=== PATIENT | male | born 1980 | race Caucasian/White ===

== ENCOUNTER 2016-05-29 09:06 | Inpatient (IN) | payer OTHER ==
[~2016-05-29] VITALS: Ht 188 cm; Wt 119.4 kg
--- NOTE | ~2016-05-29 | TXPLANREV ---
"PATIENT: BETTY KYLE W | | [facility] UNIT #: [id number] | [address] AGE/SEX: 35 M : 78 | [address] | [place] [address] ADMIT/REG DATE: 05/29/16 | ROOM: [facility] LOC: ADTC | ADTC | Treatment Plan/Staffing Review Date: 06/12/16 Treatment plan was reviewed and determined appropriate as written: Client finished his feelings letters to his mother and sons. Treatment plan was reviewed and the following changes/addition/deletions are necessary: Client began to work on Quiet Moments and read Spirituality. Discharge plans were reviewed and determined appropriate as previously documented: Yes Discharge plans were reviewed and determined to be as follows: Client has been accepted into the [facility] in [place]. Client is recommended to check into the [facility] on June 21. Other pertinent issues discussed during this staffing review include: None Staff Present: Giovanna Russell Deb H PRIMARY COUNSELOR: Felecia Lewis Client Signature Counselor Signature Date Time "
--- NOTE | ~2016-05-29 | TXPLANREV ---
"PATIENT: BETTY KYLE W | | [facility] UNIT #: [id number] | [address] AGE/SEX: 35 M : 78 | [address] | [place] [phone] ADMIT/REG DATE: 05/29/16 | ROOM: [facility] LOC: ADTC | ADTC | Treatment Plan/Staffing Review Date: 06/19/16 Treatment plan was reviewed and determined appropriate as written: Yes Treatment plan was reviewed and the following changes/addition/deletions are necessary: Client was assigned feelings letters to his mother and older sisters along with one to his daughter. Client was also given an anger and letting go of the need to control packet to work on. Discharge plans were reviewed and determined appropriate as previously documented: yes Discharge plans were reviewed and determined to be as follows: It is recommended that client go to the [facility] in [place] with outpatient counseling. Other pertinent issues discussed during this staffing review include: none Staff Present: Joanna Valladares Jolene S PRIMARY COUNSELOR: Felecia Lewis Client Signature Counselor Signature Date Time "
--- NOTE | ~2016-05-29 | INDIVTXPL2 ---
"PATIENT: BETTY KYLE W | | [facility] UNIT #: [id number] | [address] AGE/SEX: 35 M : 78 | [address] | [place] [address] ADMIT/REG DATE: 05/29/16 | ROOM: [facility] LOC: ADTC | ADTC | Individualized Treatment Plan DATE: 06/05/16 Problem Statement/Issue Identified: Client continued to use drugs despite ongoing negative consequences. Goal: Client is to learn about his drug addiction, identifying consequences of his use, and learn how to work a stronger AA/NA program. Objectives/Activities to achieve goal: 1. Client is to read and fill out Getting Started in Treatment packet, identifying consequences of his use and share with his counselor and selected pages in group. Due Date: 06/15/16 Complete: Incomplete: 2. Client is to complete Step 1, identifying 15 values he has compromised due to his use and share with his counselor and selected pages in group. Due Date: 06/15/16 Complete: Incomplete: 3. Client is to attend AA/NA meetings, ask for and get 5 male phone numbers, learning how to reach out and help build a strong program of recovery. Due Date: on-going Complete: Incomplete: Client Signature Date Counselor Signaure: Date Outcome/Measurement of Progress Towards Goal: Counselor Signature: Date "
--- NOTE | ~2016-05-29 | CLPRLASSUM ---
PATIENT: BETTY KYLE W | | [facility] UNIT #: [id number] | [address] AGE/SEX: 35 M : 78 | [address] | [place] [address] ADMIT/REG DATE: 05/29/16 | ROOM: [facility] LOC: ADTC | ADTC | Client Problem List/Assessment Summary Date: 06/05/16 Problems identified by the client: Client began to use drugs after being release from longterm. Problems identified by significant others: drugs Client's Strengths: kind, intelligent, wants recovery Problem List: Code: T Client continued to use alcohol & drugs despite ongoing negative consequences. Code: T Client is experiencing family discord and distancing as a result of past drug use. Code: T Client does not "reach-out to others for help" and instead resumes using drugs. Code Rivera: T: to be addressed during course of treatment O: problem noted, expected to resolve itself with abstinence--specific tx plan not required R: problem noted, will be referred upon discharge PRIMARY COUNSELOR: Felecia Lewis
--- NOTE | ~2016-05-29 | RESCARESUM ---
"PATIENT: BETTY KYLE W | | [facility] UNIT #: [id number] | [address] AGE/SEX: 35 M : 78 | [address] | [place] [address] ADMIT/REG DATE: 05/29/16 | ROOM: [facility] LOC: ADTC | ADTC | Summary of Residential Care Primary Counselor: Felecia [facility] Date of Admission: 05/29/16 Date of Discharge: 06/21/16 Referral Source: self Primary Care Provider Prior to Admission: Dr. 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 Discharge Diagnosis: same as above Goals Achieved: Client verbalized understanding of the severity of his powerlessness and unmanagability related to his substance use. He practiced identifying and appropriately expressing his feelings. Client began to work on identifying relapse triggers and his prevention plan. Continued Obstacles to Sobriety/Relapse Issues: Client needs to continue to work on forgiving himself for his past behaviors. Family Issues Addressed: Y Individual Therapy Y Group Therapy Y Educational Series on Substance Abuse Y Parents/Significant Others Attended Family Program Y Acute Medical Problems During the Course of Treatment N Transferred to Hospital During the Course of Treatment Y Accepting of Substance Abuse Problem N Non-accepting of Substance Abuse Problem N Required Psychological or Psychiatric Consultation During the Course of Treatment Completed AA Step # 1 During This Level of Care Significant Incidences During Treatment: None Reason For Discharge: Y Completed Residential TX Goals and Ready For Next Level of Care N Left Tx Against Medical Advice/Treatment Goals Not Complete N Completed Residential Tx Goals But Refusing Continuing Care Recommendations N Discharged Due to Noncompliance/Treatment Goals not Completed N Discharged Earlier Than Planned Due to: PATIENT: BETTY KYLE | | [facility] UNIT #: [id number] | [address] AGE/SEX: 35 M : 78 | [address] | [place] [address] ADMIT/REG DATE: 05/29/16 | ROOM: [facility] LOC: ADTC | ADTC | Summary of Residential Care Continuing Care Plan/Recommendations: N Intensive Partial Care Y Sponsor N Partial Care Y AA Meetings/NA Meetings Y Outpatient N Co-dependency Services N Therapeutic Community N 1/2 [facility] Y 3/4 [facility] N Mental Health Therapy N Marriage Counseling N Other Specific Continuing Care Plan: It is recommended that client go directly to the [facility] in [place], fllow all rules and regulations, seek full-time employment, call his sponsor on a regular basis, attend 3-4 AA/NA meetings a week, and work a strong program of recovery. PRIMARY COUNSELOR: Felecia Lewis"
--- NOTE | 2016-05-29 16:30 | NUR ---
ADMISSION NOTE Client is a 35 y/o male, referred to treatment by [facility] and brought here today from their Crisis Stabilization Unit by CSU staff. Client States NKMA and brings home medications with him today. Client states DOC is marijuana, last used in april, while in nursing home, and meth, last used May 10 in the amount of 1.75 gram. Client resides in [place] at [facility] and states that he has no family who will be participating in family group. Client was searched no contraband found. Client has only the clothes that he is wearing and a quart ziplock bag of grooming items. Client was searched, no contraband found. Rights/Responsibilities: Copy given and explained to client. Signed and accepted by client. Client oriented to physical lay out of the ADTC unit, given Big Book and admission packet. A Jad was assigned. Boy
--- NOTE | 2016-05-29 17:11 | NUR ---
Relapse Prevention, 03/02, 1.0 hours, Client attended and actively participated in relapse prevention education which focused on high risk situations.
--- NOTE | 2016-05-29 19:32 | NUR ---
education note: 1 hour lecture by [facility] on hiv/aid/std. plus clients wwere tested for HIV.
--- NOTE | 2016-05-29 22:08 | NUR ---
Tech note: Client went for a long walk for rec, participated in guided meditation and attended an onsite AA meeting.
--- NOTE | 2016-05-30 05:30 | NUR ---
Bed note : Client was in bed with eyes closed and no movement at all bed checks.
--- NOTE | 2016-05-30 11:30 | NUR ---
GROUP 1.5 HRS. 1:10 Client was oriented to purpose and rules of group. He reports first treatment attempt at [facility] at age 12. He also went to [facility] as adult. Peers processed from HOW TO GET STARTED IN TREATMENT and step 1 assignments to identify betraying values and effects on others.
--- NOTE | 2016-05-30 13:26 | NUR ---
Tech Note: Outside speaker Abhinav Erickson spoke at 1300. Client attended and is finishing up Getting Started.
--- NOTE | 2016-05-30 17:17 | NUR ---
Individual Therapy, 1.0 hours, This session focused on orienting the client to how therapy works, visiting hours, release forms, how bed checks work,room log, and family education. Client was given Step 1 to work on as homework.
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
--- NOTE | 2016-05-30 17:20 | NUR ---
Family Note: Client wants his mother to be part of family. A message was left for her to call back along with visiting hours for this weekend.
--- NOTE | 2016-05-30 17:27 | NUR ---
SPIRITUAL EDUCATION 1 HR. Topics today were clarifying the differences between spirituality and jain, and playing the spiritual challenge game where they are asked thought provoking open ended questions. It is meant to inspire spiritual line of thought.
--- NOTE | 2016-05-30 22:41 | NUR ---
Tech Note : Client participated in rec by playing catch phrase and attended an onsite NA meeting.
--- NOTE | 2016-05-30 23:39 | NUR ---
Education: 1 Hour. Client attended "Disease Concept" presented by counselor.
--- NOTE | 2016-05-31 05:36 | NUR ---
Bed Note: Client was motionless with eyes closed at all bed checks.
--- NOTE | 2016-05-31 10:42 | NUR ---
Tech Note: Client participated in light stretching for morning exercise. Client stated that he is working on Step One.
--- NOTE | 2016-05-31 13:48 | NUR ---
PEER REVIEWS 1 HR: Clt participated in peer reviews and took a risk to give open and honest feedback to those receiving a review. The last half hour of group clients talked about loved ones and dying.
--- NOTE | 2016-05-31 15:47 | NUR ---
Education 1 Hour: Client heard from a member of the recovery community who shared his experience, strength and hope.
--- NOTE | 2016-05-31 16:02 | NUR ---
Step Education 1 hr/ Focus was on step 12 "having had a spiritual awakening", each person completed a set of questions on paper and then we discussed. This client participated.
--- NOTE | 2016-05-31 19:42 | NUR ---
Tech note: client was off the unit for [employer] banquet and speaker event
--- NOTE | 2016-06-01 11:51 | NUR ---
Group 1.5 Hr Ratio 1:10/Topics today were orientating a new member to group rules and goals, a GS packet and a getting started packet. Client shared his GS packet and talked about how bad his bipolar is.
--- NOTE | 2016-06-01 13:46 | NUR ---
Tech Note: Client with with group on an outdoor walk. Client is working on the [employer] Book.
--- NOTE | 2016-06-01 16:00 | NUR ---
Education Note: Client watched "How to Sabotage Your Treatment"
--- NOTE | 2016-06-01 16:19 | NUR ---
Individual Therapy: 1.0 hours, This session focused on review of clients Getting Started packet and Step 1 packet. Client was assigned a self-worth packet to complete and feelings letters were assigned.
--- NOTE | 2016-06-01 16:35 | NUR ---
PEER REVIEWS 1.0 HR: Clt participated in peer reviews and took a risk to give open and honest feedback to those receiving a review.
--- NOTE | 2016-06-01 22:56 | NUR ---
TECH NOTE: Client participated in reading [employer], watched tv/movies. SE: getting clothes
--- NOTE | 2016-06-02 04:04 | NUR ---
Bed Note: Clt lay motionless in bed with eyes closed showing no distress at all bed checks.
--- NOTE | 2016-06-02 15:13 | NUR ---
Tech Note: Client is working on Feelings Letters.
--- NOTE | 2016-06-02 22:55 | NUR ---
TECH NOTE: Client played a game for REC, attended off site AA meeting, watched TV/movies SE: AA
--- NOTE | 2016-06-03 04:47 | NUR ---
Bed Note: Clt lay motionless in bed with eyes closed showing no distress at all bed checks.
--- NOTE | 2016-06-03 15:20 | NUR ---
Tech Note: Client participated in Big Book and stated that he is working on writing a vent letter.
--- NOTE | 2016-06-03 22:53 | NUR ---
Tech Note: Client attended A.A.Panel and participated in community clean. SE:Watching Basketball
--- NOTE | 2016-06-04 04:50 | NUR ---
Client was motionless with eyes closed at all bed checks.
--- NOTE | 2016-06-04 09:10 | NUR ---
Individual Therapy, 1.0 hours, This session focused on reviewing clients Self-[place] packet along with him reading his feelings letter to his mother and vent letter to his father. Client also discussed wanting to go to a half way house so we filled out release forms to apply.
--- NOTE | 2016-06-04 10:20 | NUR ---
Kell notes: Client is working on BB and mtg with guy
--- NOTE | 2016-06-04 15:42 | NUR ---
Morning Group, 1.5 hours, 03/03 Clients all participated in 2 family sculptures with role-playing, feedback, and how they related.
--- NOTE | 2016-06-04 16:02 | NUR ---
RECOVERY EDUCATION 1 HR. Todays topic was on denial; good, bad, and levels, life problems being 85 percent of recovery, and distorted thinking patterns that can keep us stuck.
--- NOTE | 2016-06-04 16:30 | NUR ---
Education note: Client watched video "[address] on [address]"
--- NOTE | 2016-06-04 18:35 | NUR ---
tech note: client c/o level 6 headache @ 8052,motrin 400 mg was given.
--- NOTE | 2016-06-04 18:42 | NUR ---
Education: 1 Hour. Client attended "Feelings" lecture given by staff.
--- NOTE | 2016-06-04 22:07 | NUR ---
Tech note: Client participated in rec by playing [email or web address] outside. Client attended an onsite NA meeting.
--- NOTE | 2016-06-05 04:14 | NUR ---
BED NOTE: client was in bed, motionless with eyes closed all three bed checks.
--- NOTE | 2016-06-05 11:30 | NUR ---
GROUP 1.5 HRS. 1:9 Clients oriented new peer to purpose and rules of group. This client shared that this is his 10th treatment attempt with various lengths of sobriety from 90 days-2 years. He is encouraged to look at what has worked to keep him sober when he was and what he needs to do differently to avoid relapse.
--- NOTE | 2016-06-05 16:15 | NUR ---
Relapse Prevention, 02/28 ratio, 1.0 hours, Client attended and actively participated in relapse prevention education which focused on personal reactions to high risk situtations such as personal reactions vs. personal responses, addictive thinking, irresponsible thinking, addictive behavior, irresponsible behavior, instant gratification, and emotional consequences to thoughts and actions.
--- NOTE | 2016-06-05 16:32 | NUR ---
Tech Note: Client listened to speaker Nilay share his experience, strength and hope. Client is working on the Big Book.
--- NOTE | 2016-06-05 19:31 | NUR ---
Education : 1 hour lecture given by counselor on feelings.
--- NOTE | 2016-06-05 22:13 | NUR ---
Tech note: Client played catchphrase for rec, participated in guided meditation and attended AA meeting. SE:speaker
--- NOTE | 2016-06-06 04:22 | NUR ---
Bed note: client was in bed with eyes closed and no distress at all bed checks.
--- NOTE | 2016-06-06 10:02 | NUR ---
Tech notes: Client is working on BB
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
--- NOTE | 2016-06-06 13:29 | NUR ---
Education note: Client watched video
--- NOTE | 2016-06-06 16:22 | NUR ---
SPIRITUAL EDUCATION 1 HR. Todays topic was the ADDICTIVE SELF vs. SPIRITUAL SELF. We held discussion on who we are in our addiction vs who we are in recovery and contrasted the two.
--- NOTE | 2016-06-06 18:32 | NUR ---
Education: 1 hour lecture on self esteem given by counselor
--- NOTE | 2016-06-06 22:47 | NUR ---
Client did beads for rec and attended N.A.Meeting. SE: Outside N.A.Member speaking at meeting
--- NOTE | 2016-06-07 03:59 | NUR ---
Bed note: client was in bed with eyes closed and no distress at all bed checks.
--- NOTE | 2016-06-07 10:19 | HP ---
ADMIT: 05/29/2016 RM/LOC: [facility] MR#: [id number] [place], [place] [id number] BETTY KYLE [address] [place] [address] History and Physical SEX: M AGE: 35 : 1980 DATE OF SERVICE: This is for his admission to the residential care program at [facility]. CHIEF COMPLAINT: Drug problem with recent relapse. CLINICAL HISTORY: The patient is a 35-year-old white male, admitted to the residential care program at this time for treatment of his cannabis use disorder and stimulant use disorder. The patient notes that he recently was released from group home. He was in group home for little over 2 years going into group home in March of 2014 and being released on 05/08/2016. He was in group home for burglary charges. This was his second extended stay in group home having spent two years in group home from 2007 until 2009 also for burglary charges. Has an extensive legal history. His legal problems are all related to his ongoing chemical dependency and substance abuse. He readily admits that he is an addict, noting that his drug of choice is marijuana with his second drug of choice being methamphetamine. He notes he got out of group home on 05/08/2016 and upon his release from group home, his intent was to stay clean and sober and stay away from drugs completely. Unfortunately, the day after he got out of group home, he hooked up with an old friend, who had both meth and pot and he went on a two-day binge using both pot and meth heavily for 2 days using on 05/09 and 05/10. On 05/11 because of his heavy meth use, he was having hallucinations and was having wide mood swings and was having suicidal ideation. He went to the ER at [facility] and was admitted to the Behavioral Service Unit. He has been at the [facility] Behavioral Service Unit from 05/11/2016 through 05/22/2016. After spending 11 days at [facility], he then went to [facility] where he has been for the past week from 05/22/2016 through 05/29/2016. The patient expresses a desire to remain clean and sober, but notes that he did not have the will power to resist the temptation when offered by his friend on 05/09/2016. The patient as noted admits that he is an addict. He notes this is his fourth time in treatment. The patient notes that he had treatment in 1992 at [facility]. He went back to treatment in 2004 at the [facility] in [place]. In 2011, he was at [facility]. He then was there for treatment. He then went to the [facility] for one year and had a period of one and half years of sobriety before once again relapsing. I have already stated his drug of choice is pot. He first started using marijuana at age 12. He has been using off and on since that time. When he has the money and access, he smokes pot daily up to as much as 0.25 ounce of pot per day. His second drug of choice is methamphetamine. He has been using amphetamine since age 15. Primarily smokes some or uses them IV. He notes that he will use them off and on. Typically using a half of an 8 ball per day. IVs preferred route of administration. He notes he has mixed opioids with the meth in the past, mixing morphine and meth together and shooting that IV. He has also abused Ritalin, Ativan, oxycodone, and hydrocodone in the past. He notes this has been on a very limited irregular basis. His primary drugs of choice have been pot and meth. He has used cocaine in the past as well, but has not used any cocaine in the last 5 years. He has also experimented with hallucinogens in the form of LSD and mushrooms in the past when he was in his late teen. He ADMIT: 05/29/2016 RM/LOC: [id number] [facility] MR#: [id number] [id number] [facility] [address] [place] [id number] BETTY [address]YLE [address] [place] [address] History and Physical SEX: M AGE: 35 : 1980 notes he is not much of a drinker at this time. He notes when he was younger during his late teens and early 20s, he was a heavy user of alcohol, drinking daily to intoxication, but in the last 10 to 12 years, he has drank on a very limited basis. He does not believe he has had any alcohol in the last 3 to 4 years. He comes to treatment at this time because he is in violation of his probation since he started using right away. He comes to treatment hoping to avoid going back to group home. PAST MEDICAL HISTORY: Recent hospitalizations: As noted, he was just recently at [facility] for psychiatric stabilization from 05/11/2016 through 05/22/2016. The patient notes in 2010, he had a deep-seated MRSA infection in his right thigh that required extensive drainage. He was hospitalized for 5 to 6 days with a severe MRSA infection in 2010. He has had no other recent hospitalizations. Previous operations: I and D and debridement of his left leg abscess in 2010. No other surgical procedures. His current medications he was started on when admitted to [facility], prior to his admission to [facility] he was on no medications, getting out of group home. CURRENT MEDICATIONS: Include: 1. Prilosec 20 mg one daily. 2. Nubieber 300 mg two tablets twice a day. 3. Bupropion 150 mg one tablet t.i.d. 4. Seroquel 400 mg one at bedtime. 5. Seroquel 50 mg every 6 hours p.r.n. anxiety. ALLERGIES: NO KNOWN ALLERGIES. MEDICAL ILLNESSES: The patient denies any chronic health problems that he is aware of other than for his chemical dependency as well as chronic psychiatric problems. He admits to a longstanding difficulty with depression, panic attacks, and anxiety. He is noted to be a smoker. Typically, he smokes a half pack a day. REVIEW OF SYSTEMS: Remainder of a 12-point review of systems is negative. SOCIAL HISTORY: The patient has been once. His marriage lasted about a year and a half, but they had been together for several years prior to that. He remains at this time. He has two children from his prior marriage, their ages are 10 and 14. He is currently homeless. The patient notes that he dropped out of high school. He got his GED as a teenager while he was at the [facility]. He notes he dropped out of high school in the 9th grade. He is currently unemployed. FAMILY HISTORY: He notes his parents when he was age 8. Primarily ADMIT: 05/29/2016 RM/LOC: [facility] MR#: [id number] [address] [id number] [facility] [address] [place] [address] History and Physical SEX: M AGE: 35 : 1980 raised by his mother. He notes that both of his parents were alcoholics and addicts. His father continues to drink and use meth. Mother was an alcoholic. She has now been clean for 24 years. He notes he has an older sister, who is also an alcoholic. Notes a strong history of chemical dependency issues on both sides of his family. PHYSICAL EXAMINATION: VITAL SIGNS: Temp is 95.8, pulse is 76, respirations 12, and blood pressure 139/86. Height is 6 feet 2 inches and weight is 261 pounds. GENERAL: The patient is a 35-year-old male, who appears his stated age. He is in no acute distress. He is oriented x3. HEENT: Today is unremarkable. NECK: Supple. Thyroid not enlarged. No cervical adenopathy. LUNGS: Noted to be clear. HEART: Regular rhythm without murmur. ABDOMEN: Today is unremarkable. Nontender. No masses or organomegaly. GENITALIA: Normal male. No hernias. EXTREMITIES: Normal to gross exam. He does have extensive scarring of the medial aspect of his right thigh from previous I and D procedure. He has no peripheral edema. No clubbing or cyanosis. NEUROLOGIC: He is intact with no focal deficit. MENTAL STATUS EXAMINATION: He is pleasant and cooperative. Affect is appropriate. His mood is calm. He has no bizarre ideation. No delusions. No psychotic thought processes at this time. He does admit to depressed mood and prior suicidal thoughts, but none at this time. He is oriented x3. His memory is intact. He appears to be of average intelligence. Insight is limited. Judgment is limited. ASSESSMENT AT THE TIME OF ADMISSION: 1. Stimulant use disorder, stimulant/methamphetamine use disorder, severe. 2. Cannabis use disorder, severe. 3. Alcohol use disorder, severe in full sustained remission. 4. Opioid use disorder, mild. 5. Substance-induced psychotic disorder. 6. Bipolar disorder. ADMIT: 05/29/2016 RM/LOC: [id number] MR#: [id number] [facility] [address] [id number] [place] [address] History and Physical SEX: M AGE: 35 : 1980 7. Generalized anxiety disorder. 8. Posttraumatic stress disorder. 9. Tobacco use disorder. 10.Chronic gastroesophageal reflux disease/reflux esophagitis. PLAN: Plan is to admit the patient to the residential care program with a tentative discharge date of 06/26/2016. Upon completion of treatment, strongly we would recommend that the patient go to a prison house. He will need continued psychiatric care post treatment for management of his psychotropic medications. The patient appears to be relatively stable on his current medications. We will continue with the medications as he was discharged on them from [facility]. Peter Vee MD/ prachi JOB #: [id number] CC: Peter Vee, Attending Physician FAMILY PHYSICIAN, Family Physician
--- NOTE | 2016-06-07 11:54 | NUR ---
Group 1.5 Hr Ratio 1:10/Topics today were a Getting Started packet, a Relapse prevention and a Self worth packet. Client shared his Self [place] packet and what he can do to help him feel good about his self.
--- NOTE | 2016-06-07 15:25 | NUR ---
Tech Note: Client participated in Spiritual Enrichment in the morning and went for an outdoor walk after lunch. Client stated that he is working on reading the Big Book.
--- NOTE | 2016-06-07 16:15 | NUR ---
Education 1 Hour: Client heard a presentation on cross addiction.
--- NOTE | 2016-06-07 17:00 | NUR ---
FAMILY EDUCATION 3 HRS. Client was accompanied by his mom. They took part in the discussion on the disease concept. Client shared chemical history and the consequences.
--- NOTE | 2016-06-07 23:02 | NUR ---
TECH NOTE: Client did newcommer bookmarks for REC, participated in guided meditation, and attended AA meeting. SE: family
--- NOTE | 2016-06-08 01:21 | NUR ---
1 HR EDUCATION: Client watched a video "Say Yes to Life" by Father Maximilian Johnston
--- NOTE | 2016-06-08 04:40 | NUR ---
Bed Note: CLt lay motionless in bed with eyes closed showing no distress at first and last bed checks. The second bed check clt looked at tech.
--- NOTE | 2016-06-08 09:53 | NUR ---
Individual therapy, 1.0 hours, This session focused on reviewing clients feelings letter to his mother. Client talked about how happy he was that his mother attended family education and is coming back on June 18. Client talked about some frustrations he had with other clients and how he had handled himself better than he used to. Client was assigned a relapse prevention packet and a spiritual book to read.
--- NOTE | 2016-06-08 13:39 | NUR ---
Morning Group, 02/21, 1.5 hours, Client attended and actively participated in group session. Client was quiet during group and mostly listened.
--- NOTE | 2016-06-08 14:48 | NUR ---
PEER REVIEWS 1.5 HRS: Clt participated in peer review process and took a risk to give open and honest feedback.
--- NOTE | 2016-06-08 16:19 | NUR ---
Tech Note: Clt watched "Relapse" for afternoon video. Clt is working on reading the Big Book.
--- NOTE | 2016-06-08 22:40 | NUR ---
Tech note: Client watched tv and movies.
--- NOTE | 2016-06-09 05:19 | NUR ---
Bed note : Client was in bed motionless with eyes close at all bed checks.
--- NOTE | 2016-06-09 05:20 | NUR ---
Bed note : Client was in bed motionless with eyes close at all bed checks.
--- NOTE | 2016-06-09 15:35 | NUR ---
Tech Note: Client attended A.A.Meeting at [facility] and [place] and then helped with the clubhouse cleaning, ate lunch, and listened to a speaker. Client is working on Relapse Prevention
--- NOTE | 2016-06-09 20:42 | NUR ---
tech note: Client played a game for recreation & attended offsite AA meeting. Client watched tv. SE: Free time.
--- NOTE | 2016-06-10 05:20 | NUR ---
Bed note: Client was in bed motionless with eyes closed at all bed checks.
--- NOTE | 2016-06-10 16:19 | NUR ---
TECH NOTE: Client participated in Chapter 5 of Big Book study, attended study time, and watched tv/movies
--- NOTE | 2016-06-10 22:57 | NUR ---
tech note: client attended AA Panel & participated in Community Clean. Client watched tv. Client filled out Self-Care Sheet. SE: All Day.
--- NOTE | 2016-06-11 04:37 | NUR ---
Bed Note: Clt lay motionless in bed with eyes closed showing no distress at all bed checks.
--- NOTE | 2016-06-11 11:13 | NUR ---
Tech notes: Client is working on LocBox
--- NOTE | 2016-06-11 12:59 | NUR ---
Morning Group, 02/19 ratio, 1.5 hours, Client attended and actively participated in group discussion. Client listened to his peers talk about family and offered feedback to another peer about a feelings letter written.
--- NOTE | 2016-06-11 15:39 | NUR ---
Education note: Client attended speaker for education, Samara on Tobacco
--- NOTE | 2016-06-11 16:00 | NUR ---
Recovery 101 1 hr/ Clients all participated in reading, highlighting and discussing the Big Book on areas about honest, acceptance, living in problem vs living in solution, resentments, 1/2 measures, and the 12 promises.
--- NOTE | 2016-06-11 18:13 | NUR ---
Education: 1 hour lecture given by counselor on "forgiveness"
--- NOTE | 2016-06-11 22:24 | NUR ---
Tech note : Client went on a walk for rec and attended an onsite NA meeting. SE; Having a cindy
--- NOTE | 2016-06-12 04:15 | NUR ---
Bed note: Client was in bed with eyes closed and no distress at all bed checks.
--- NOTE | 2016-06-12 10:28 | NUR ---
Contact Note: Talked to Delio at the [facility] and Alfredo was accepted to the [facility] and should check in on SaturdayJune 22.
--- NOTE | 2016-06-12 12:53 | NUR ---
A.M. 1.5 hr res group/ratio 1:10/ Group heard a getting started and a goodbye letter to addiction. Discussed having resentment towards self, how kids are forgiving, and we oriented 3 new group members. This client did a great job with his goodbye letter to his addiction. He got teary eyed when speaking about his kids.
--- NOTE | 2016-06-12 13:12 | NUR ---
Tech Note: Client participated in light stretching for morning exercise and went for an outdoor walk in the afternoon. Client stated that he is working on, "Relapse Prevention."
--- NOTE | 2016-06-12 16:10 | NUR ---
Relapse Prevention Education, 1.0 hours, Client attended and actively participated in relapse prevention education which focused on a Relapse Prevention Quiz and discussion over the answers.
--- NOTE | 2016-06-12 16:13 | NUR ---
Individual Therapy, 1.0 hours, This session focused on review of clients relapse prevention packet. Client wrote a letter to his addiction and feelings letter to his mother. Client read both and discussed his feelings. Client also discussed his excitement over being accepted to the [facility] in [place].
--- NOTE | 2016-06-12 20:27 | NUR ---
educatio note: 1 hour lecture by counselor on" what garcia are you willing to pay"
--- NOTE | 2016-06-12 22:35 | NUR ---
Tech note: Client attended the Alumni meeting, participated in guided meditation and attended an onsite AA meeting. SE; Group
--- NOTE | 2016-06-13 04:56 | NUR ---
Bed note: Client was in bed with eyes closed and motionless at all bed checks.
--- NOTE | 2016-06-13 10:36 | NUR ---
Tech notes: Client is working on Spirtuality
--- NOTE | 2016-06-13 11:30 | NUR ---
GROUP 1.5 HRS. 1:11 Discussion included the need for appropriate boundaries on the unit and working towards recovery/new behaviors, not addiction/old behaviors. Clients also discussed the effects on addiction as peers had parents that were addicts and then became the parent who addiction effected their own kids. This client identified negative changes in group over the last week.
--- NOTE | 2016-06-13 12:35 | NUR ---
Education note: Client had education by [facility]
--- NOTE | 2016-06-13 17:21 | NUR ---
SPIRITUAL EDUCATION 1 HR. Todays topics were orienting newcomers, and taking a look at Erich Mejias's 5 SECRETS TO SUCCESS which include a look at the miracles of the human body as blessings.
--- NOTE | 2016-06-13 19:42 | NUR ---
tech note: client complained of headache-pain level 6. motrin given
--- NOTE | 2016-06-13 20:56 | NUR ---
education: 1 hour video on unresolved anger and group discussion with counselor
--- NOTE | 2016-06-13 22:07 | NUR ---
Tech note: Client worked on beaded project and attended an onsite NA meeting. SE; NA meeting
--- NOTE | 2016-06-14 04:02 | NUR ---
Bed note: Client was in bed with eyes closed and no distress at all bed checks.
--- NOTE | 2016-06-14 10:21 | NUR ---
Tech Note: Client participated in Spiritual Enrichment. Client stated that he is working on "Quiet Moments."
--- NOTE | 2016-06-14 11:30 | NUR ---
AM GRP 1.5 HRS, Ratio 1:11/ Clt participated in grp discussion and could relate to how his addiction hurt his kids and how important it is to stay clean and work recovery.
--- NOTE | 2016-06-14 13:38 | NUR ---
Education 1 Hour: Client heard a presentation from a member of the recovery community who shared his experience, strength and hope.
--- NOTE | 2016-06-14 15:44 | NUR ---
Individual Baldemar, 1.0 hours, This session focused on client reading his feelings letter to his mother and to his sons. Client's reviewed his homework from his Spirituality and Quite Moments packet. He was asked to share select pages from them in group.
--- NOTE | 2016-06-14 16:31 | NUR ---
step education 1 hr/ Focus was on step 2, handed out some questions they completed on paper and then opened it up for discussion. This client participated.
--- NOTE | 2016-06-14 23:33 | NUR ---
Tech Note: Client attended Guided Meditation and A.A.Meeting. SE: Group
--- NOTE | 2016-06-15 04:24 | NUR ---
Eduction: 1 Hour. Client attended "Unresolved Anger" video & discussion presented by staff.
--- NOTE | 2016-06-15 11:30 | NUR ---
GROUP 1.5 HR/ 11:1 Clients all reviewed rules and heard new member share about himself. This client was attentive and he related to relapse, was clean 2 1/2 years, had sponsor, sponsorees, , kids, great job, home, cars and was area rep for meetings, but got on pity-pot and wasn't getting to meetings due to childcare and relapsed. He said he lost it all in 1 week, and doesn't believe in bottoms unless it is .
--- NOTE | 2016-06-15 13:00 | NUR ---
PEER REVIEWS 1.5 HRS: Clt participated in peer review process and was able to give open and honest feedback to those receiving a review.
--- NOTE | 2016-06-15 16:21 | NUR ---
Tech Note: Client participated in group walk for exercise and watched "Recovery Issues Part 3" for afternoon video. Client is working on Quiet Moments.
--- NOTE | 2016-06-15 22:45 | NUR ---
TECH NOTE: Client participated in reading guidelines and watched tv/movies. SE: peer review
--- NOTE | 2016-06-16 04:09 | NUR ---
Bed Note: Clt lay motionless in bed with eyes closed showing no distress at all bed checks.
--- NOTE | 2016-06-16 16:01 | NUR ---
Tech Note: Client attended NA Panel and is working on Quiet Moments.
--- NOTE | 2016-06-16 20:12 | NUR ---
Tech note: Clt played a game for recreation and attended offsite AA mtg. Argued with tech about game selection for rec, watched tv and played cards. SE was nap and phone call
--- NOTE | 2016-06-17 04:35 | NUR ---
Bed Note: Clt lay motionless in bed with eyes closed showing no distress at all bed checks.
--- NOTE | 2016-06-17 15:44 | NUR ---
Tech Note: Client participated in Big Book Study. Client stated that he is working on, "Quiet Moments."
--- NOTE | 2016-06-17 22:38 | NUR ---
Tech Note: Clt attended AA panel, used phone and watched tv. SE was AA panel
--- NOTE | 2016-06-18 04:37 | NUR ---
Bed Note: Clt lay motionless in bed with eyes closed showing no distress at all bed checks.
--- NOTE | 2016-06-18 10:14 | NUR ---
Kell notes: Client is working on BB and mtg with guy
--- NOTE | 2016-06-18 11:30 | NUR ---
Morning Group, 02/20 ration, 1.5 hours, Client attended and actively participated in group discussion. Client shared about his fear of leaving treatment and also the relationship he has with his mother.
--- NOTE | 2016-06-18 13:00 | NUR ---
Family Session, 1.0 hours, This session focused on client meeting with his mother to set up expectations and boundaries for when he moves to [place]. Client's mother set clear boundaries for client and client asked mother to be a mom and not act like a sponsor to him. Client talked to mom about some past resentments he held towards mom and how he has let them go.
--- NOTE | 2016-06-18 13:30 | NUR ---
Education: Client attended education by Talya on Infection prevention.
--- NOTE | 2016-06-18 17:00 | NUR ---
FAMILY EDUCATION 3 HRS., GROUP 4 HRS. 1:5 Client was accompanied by his mom. They took part in the discussion on the family roles, codependency and detachment. Client related to mascot and scapegoat roles.
--- NOTE | 2016-06-18 17:00 | NUR ---
FAMILY EDUCATION 3 HRS. Client was accompanied by his mom. They took part in the discussion on the family roles, codependency and detachment. Client related to mascot and scapegoat roles.
--- NOTE | 2016-06-18 18:11 | NUR ---
Education: 1 Hour. Client attended "Adult Children of Alcoholics" lecture presented by staff.
--- NOTE | 2016-06-18 21:00 | NUR ---
FAMILY GROUP 4:/ HR: Client, peers and attending family members heard two families process FEELINGS LETTERS. Much of the focus became family of origin issues and rebuilding trust. Everyone related, everyone shared and processed. This client attended with his mom who identified herself as being in senior living recovery. Both remained active through out with personal sharing and support for others who shared. Client processed his FEELINGS LETTER with mom, but mom said she had no idea that she was to write a letter to him. They did well but client seems to think he can't live any other way and was pretty down on himself. He received a lot of support from the group/peers.
--- NOTE | 2016-06-18 23:18 | NUR ---
tech note: Client attended Family Session. SE: Family.
--- NOTE | 2016-06-19 04:31 | NUR ---
BED NOTE: Client was in bed, motionless with eyes closed all three bed checks.
--- NOTE | 2016-06-19 11:30 | NUR ---
GROUP 1.5 HRS. 1:9 Client participated in orienting new peer to purpose and rules of group. Group discussion included anger and frustration at peer's disrespect and immaturity. The peer was in the other group so clients were redirected at what they can do to be a part of the solution, not part of the problem. This client advised he was very angry about peer's behavior and wanted to leave when he observed it. He also owned that the behavior reminds him of himself when he was in Jr. High.
--- NOTE | 2016-06-19 14:00 | NUR ---
Relapse Prevention, 1.0 hours, Client attended and actively participated in relapse prevention education which focused on internal and external triggers.
--- NOTE | 2016-06-19 16:34 | NUR ---
Tech Note: Client participated in Nutritional Services presentation and is working on the Big Book.
--- NOTE | 2016-06-19 22:41 | NUR ---
Education: 1 hour lecture given by counselor on co-dependency
--- NOTE | 2016-06-19 22:48 | NUR ---
Tech note: clients played catchphrase for rec, participated in guided meditation and attended AA meeting SE: all day
--- NOTE | 2016-06-20 04:35 | NUR ---
bed note: client was in bed with eyes closed and motionless at all bed checks.
--- NOTE | 2016-06-20 09:51 | NUR ---
Tech notes: Client is working on BB
--- NOTE | 2016-06-20 12:56 | NUR ---
AM GROUP 9:02/11 1.5 HR: Client and peers participated in ORIENTATION OF TWO NEW PEERS TO GROUP GUIDELINES, PURPOSE, GOALS AND OBJECTIVES. Group heard several process assignments/issues. Much of the focus was on how deeply kids are affected by a parent"s chemical use, even if the kids don't directly see it. This client shared that he knows that he has to develop more effective coping and decision-making skills to be successful in his recovery. He was otherwise quiet but attentive.
--- NOTE | 2016-06-20 13:14 | NUR ---
Education note: Client attended educational speaker Carlito Sheehan
--- NOTE | 2016-06-20 17:23 | NUR ---
SPIRITUAL EDUCATION 1 HR. Today we used music to invoke discussion, symbolize how it can be either positive spirituality or negative spirituality, and discussed the feelings. We used one song that depicted addiction, one that talked about recovery, and since we are close to Mother's Day, one that depicted addiction in parents and forgiveness.
--- NOTE | 2016-06-20 18:16 | NUR ---
Education: 1 Hour. Client attended "Boudaries" lecture given by staff.
--- NOTE | 2016-06-20 22:51 | NUR ---
Tech Note: Client played a game for rec, and attended The on unit N.A.Meeting. SE: Speaker/NA
--- NOTE | 2016-06-21 04:29 | NUR ---
Bed Note: Client was in bed with eyes closed and motionless at all bed checks.
--- NOTE | 2016-06-21 09:57 | NUR ---
DISCHARGE NOTE Client completed treatment and left the faciity, taking all personal belongings with him, including home medications that had been stored at the pharmacy. Discharge instructions were reviewed and a signed copy provided to the client.
--- NOTE | 2016-07-29 13:51 | DS ---
ADMIT: 05/29/2016 RM/LOC: [facility] MR#: [id number] [address] [id number] [place], [place] [id number] BETTY KYLE [address] [place] [address] General Discharge Summary SEX: M AGE: 35 : 1980 ADMISSION DATE: 05/29/2016 DISCHARGE DATE: 06/21/2016 This is for his admission to the residential care program at the [facility]. ADMITTING DIAGNOSIS: As per history and physical. FINAL DIAGNOSES: As follows; 1. Stimulant/methamphetamine use disorder, severe. 2. Cannabis use disorder, severe. 3. Alcohol use disorder, severe, in full sustained remission. 4. Opioid use disorder, mild. 5. Substance-induced psychotic disorder. 6. Bipolar disorder. 7. Generalized anxiety disorder. 8. Posttraumatic stress disorder by history. 9. Tobacco use disorder. 10.Chronic gastroesophageal reflux disease/esophageal reflux with reflux esophagitis. COMPLICATIONS: None. OPERATIONS: None. CLINICAL HISTORY: The patient is a 35-year-old white male, admitted to the residential care program at the [facility] for treatment of his cannabis use disorder and stimulant use disorder as well as opioid use disorder. The patient was recently released from senior living. The patient was in senior living until 05/08/2016, [facility]. The patient is noted to have gotten out of senior living on 05/08/2016. The patient relapsed on 05/09/2016 because of his heavy meth use. He was having hallucination and wide mood swings and suicidal ideation, and for that reason, he went to [facility] and was admitted to the [facility]. The patient then went from the [facility] until his admission here at the residential care program. For details of his pattern of usage and problems associated with his ongoing substance abuse and chemical dependency, please see the clinical history portion of the dictated history and physical. Please also see dictated history and physical for physical exam findings. Laboratory and x-ray summary from this admission, none indicated, none performed. HOSPITAL COURSE: The patient was admitted to the residential care program and assigned to his primary counselor, Felecia Lewis. He remained in the treatment program from 05/29/2016 through 06/21/2016. While in treatment, he participated in individual therapy and group therapy. He was also given the educational series on substance abuse and worked on many of these assignments during his stay at the treatment program. He did attend family education and ADMIT: 05/29/2016 RM/LOC: [facility] MR#: [id number] [facility] [address] [address] [place] [address] General Discharge Summary SEX: M AGE: 35 : 1980 family group sessions, but had no family participation. While in the treatment program, he had no acute medical issues. He was accepting of his substance abuse problem and worked well with the staff, in both individual and group settings. While in treatment, he gained a better understanding of the severity of his addiction and his powerlessness over drugs and alcohol. He was also able to recognize the unmanageability of his life when he was using. He practiced identifying and appropriately expressing feelings. He worked on identifying relapse triggers and worked on his own personal relapse prevention plan identifying obstacles to his long-term sobriety. He ultimately was able to complete step 1 of AA during this level of care. He completed his residential treatment goals and was felt to be ready for the next level of care. He was agreeable to go to a [address] and was discharged from the treatment program to go directly to the [facility] in [place]. He is to reside at the [facility] for a minimum of 6 months. He is to seek full-time employment. He is to obtain an AA or NA sponsor and maintain regular contact with his sponsor and attend a minimum of 3-4 AA or NA meetings per week. He is to work a strong program of recovery. He is to be involved in outpatient aftercare with one of the providers in the [place] area while he resides at the [facility]. CONDITION AT DISCHARGE: His condition at discharge is felt to be improved. MEDICATIONS AT DISCHARGE: Included; 1. Prilosec 20 mg daily. 2. [place] 300 mg 2 tabs b.i.d. 3. Bupropion 150 mg 1 t.i.d. 4. Seroquel 400 mg at bedtime. As noted, condition at discharge is improved. PROGNOSIS: Is felt to be good if he follows through on aftercare recommendations including the extended stay at the [address] [place] [address]. Peter Vee MD/ prachi JOB #: [id number] CC: Peter Vee MD, Attending Physician FAMILY PHYSICIAN, Family Physician
== END 2016-06-21 10:04 | disposition home or self-care (01) | DRG 895 ==
LOC: ADTC 10:14
PROVIDERS: ADMIT Family Medicine
PROC: HZ34ZZZ Individual Counseling for Substance Abuse Treatment, Interpersonal (ICD-10-PCS; principal; 2016-05-29)
PROC: HZ63ZZZ Family Counseling for Substance Abuse Treatment (ICD-10-PCS; principal; 2016-05-29)
PROC: HZ43ZZZ Group Counseling for Substance Abuse Treatment, 12-Step (ICD-10-PCS; principal; 2016-05-29)
DX: F15.20 Other stimulant dependence, uncomplicated (principal); F31.9 Bipolar disorder, unspecified; F11.10 Opioid abuse, uncomplicated; F19.259 Other psychoactive substance dependence with psychoactive substance-induced psychotic disorder, unspecified; F12.20 Cannabis dependence, uncomplicated; F10.21 Alcohol dependence, in remission; F41.1 Generalized anxiety disorder; K21.0 Gastro-esophageal reflux disease with esophagitis; Z86.14 Personal history of Methicillin resistant Staphylococcus aureus infection; Z63.72 Alcoholism and drug addiction in family; Z56.0 Unemployment, unspecified; Z65.3 Problems related to other legal circumstances; Z59.0 Homelessness